=== PATIENT | female | born 1965 | race Caucasian/White ===

== ENCOUNTER 2018-08-29 12:04 | Day surgery (SDC) | payer OTHER, MEDICAID ==
[~2018-08-29] VITALS: Ht 172.7 cm; Wt 97.5 kg
[~2018-08-29 12:04] MED LIST: ADVI200T PO; NS 1,000 ML IV ONE; OMEP40CA2 PO
[2018-08-29] MEDS ORDERED: LIDOCAINE 2% INJ 100 MG/5 ML SDV (FOR ANES.) As Ordered ONE (15:04)
[2018-08-29] MEDS ORDERED: PROPOFOL 200 MG/20 ML VIAL As Ordered ONE (15:04)
--- NOTE | 2018-08-29 15:14 | ROOR ---
Patient Name: Nola Hyde Procedure Date: 08/29/2018 3:00 PM Date of : 1965 Age: 52 Room: [facility] Gender: Female Note Status: Finalized Procedure: Upper GI endoscopy Indications: Abdominal pain in the right upper quadrant. (Outside EGD showed "abnormal" biopsy of antrum) Providers: Rito DELGADO MD Referring MD: Alma Rosa CHAN MD Requesting Provider: Medicines: Monitored Anesthesia Care Complications: No immediate complications. Procedure: Pre-Anesthesia Assessment: - The heart rate, respiratory rate, oxygen saturations, blood pressure, adequacy of pulmonary ventilation, and response to care were monitored throughout the procedure. The Endoscope was introduced through the mouth, and advanced to the second part of duodenum. The upper GI endoscopy was accomplished without difficulty. The patient tolerated the procedure well. Findings: Very small (insignificant) Hiatal Hernia. The esophagus was normal. The stomach was normal. The examined duodenum was normal. Biopsies were taken with a cold forceps in the entire examined stomach for histology. Impression: - Very small (insignificant) Hiatal Hernia. - Normal esophagus. - Normal stomach. - Normal examined duodenum. - Biopsies were taken with a cold forceps for histology in the entire examined stomach. Recommendation: - Continue present medications. - Telephone endoscopist for pathology results in 2 weeks. - Return to referring physician as previously scheduled. Rito Delgado MD Rito DELGADO MD 08/29/2018 3:14:03 PM Electronically signed by Rito DELGADO MD Number of Addenda: 0 Note Initiated On: 08/29/2018 3:00 PM Estimated Blood Loss: Estimated blood loss: none.
[2018-08-29 15:31] VITALS: BP 151/97
== END 2018-08-29 15:40 | disposition home or self-care (01) ==
LOC: M OPP 12:04
PROVIDERS: ATTEND Internal Medicine Gastroenterology
DX: K44.9 Diaphragmatic hernia without obstruction or gangrene (principal); R10.11 Right upper quadrant pain

== ENCOUNTER → 2019-05-18 | Outpatient (REF) | payer OTHER, MEDICAID ==
[~2019-05-18] MED LIST changes: -NS 1,000 ML IV ONE; -OMEP40CA2 PO; +OMEP40CA97 PO
== END ==
LOC: M LAB LCGH 12:10
PROVIDERS: ATTEND Family Medicine
DX: Z12.4 Encounter for screening for malignant neoplasm of cervix (principal); Z78.0 Asymptomatic menopausal state
CPT/HCPCS: 87624; G0123